=== PATIENT | male | born 1960 | race Caucasian/White ===

== ENCOUNTER 2024-01-11 12:09 | Outpatient (REF) | payer BC, SELFPAY ==
--- NOTE | ~2024-01-11 | XR_ITS ---
EXAMINATION: X-ray orbits. INDICATION: Metallic exposure, pre MRI evaluation for metallic foreign body. FINDINGS: Two Water's views and a lateral view x-rays of the orbits show intact bony borders. No radiopaque foreign bodies were found. XR/XR pre mri screening IMPRESSION: Normal orbits x-ray. No evidence of metallic foreign body.
--- NOTE | ~2024-01-11 | MR_ITS ---
EXAMINATION: MR BRAIN WITHOUT CONTRAST CLINICAL INFORMATION: Forgetful COMPARISON: None. TECHNIQUE: MRI of the brain was obtained using routine sequences without contrast. FINDINGS: No acute infarct. No acute intracranial hemorrhage or extra-axial fluid collection. Mild global cerebral volume loss. There may be slight right-sided hippocampal volume loss with ex vacuo dilatation of the right temporal horn. No parenchymal signal abnormality. No mass lesion, mass effect, or herniation pattern. Normal intracranial arterial and dural venous sinus flow voids. 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 The orbits are grossly unremarkable. Small retention cysts in the maxillary sinuses. 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 No mastoid effusion. Completely imaged cervical spondylosis, including hypertrophic advanced right C4-C5 facet arthrosis with T1 hypointense marrow signal that may reflect sclerosis versus marrow edema. MR/MR head/brain wo con IMPRESSION: Mild global cerebral volume loss. There may be slight right-sided hippocampal volume loss with ex vacuo dilatation of the right temporal horn. Consider 6 month follow-up volumetric assessment, as clinically warranted.
== END 2024-01-11 12:10 | disposition home or self-care (01) ==
LOC: HO.MRI 12:09
PROVIDERS: Absent Provider Internal Medicine; PCP Family Medicine; Visit Provider Psychiatry & Neurology Neurology
DX: G30.9 Alzheimer's disease, unspecified (principal)
CPT/HCPCS: 70551

== ENCOUNTER 2024-02-09 09:15 | Day surgery (SDC) | payer BC, OTHER, SELFPAY ==
--- NOTE | ~2024-02-09 | FL_ITS ---
Fluoroscopic lumbar puncture Indication: Concern for Alzheimer's dementia Risks and benefits and possible complications were discussed with the patient and the consent form was signed. Patient was placed prone on the fluoroscopy table. The back was prepped and draped in routine sterile fashion. Betadine was used as a skin antiseptic. Utilizing fluoroscopic guidance, the L3-4 interlaminar space was accessed with a 22 gague Slao spinal needle and clear CSF fluid obtained. Opening pressure was 14 cm H20. 10 cc of fluid was sent for analysis. The needle was removed without immediate complications. Total fluoroscopy time: 0.2 min FL/FL guided lumbar puncture LP Impression: Successful fluoroscopic lumbar puncture This procedure was performed by Cristo Gray PA-C and supervised by Dr. Wei.
[2024-02-09 09:53] VITALS: BMI 25.8
[2024-02-09 10:14] LABS: MANUAL DIFF FLAG NO
[2024-02-09 10:16] LABS: Basophils Absolute Auto 0.1 X10*3/uL (0.0-0.2); Basophils Percent Auto 2.2 % (0-2); Eosinophils Absolute Auto 0.3 X10*3/uL (0.0-0.4); Eosinophils Percent Auto 6.1 % (0-4); Hematocrit 46.4 % (42.0-52.0); Imm Gran Abs Auto 0.01 X10*3/uL (0.00-0.03); Imm Gran Pct Auto 0.2 % (0.0-0.4); Lymphocytes Absolute Auto 1.3 X10*3/uL (1.2-4.9); Lymphocytes Percent Auto 23.5 % (20-40); Mean Corpuscular HGB Conc 34.5 g/dl (31.0-36.0); Mean Corpuscular Hemoglobin 31.1 pg (27.0-33.0); Mean Corpuscular Volume 90.3 fL (80.0-98.0); Mean Platelet Volume 9.3 fL (9.4-12.4); Monocytes Absolute Auto 0.6 X10*3/uL (0.1-1.2); Monocytes Percent Auto 9.9 % (2-11); Neutrophils Absolute Auto 3.2 x10*3/uL (2.0-8.3); Neutrophils Percent Auto 58.1 % (45-73); Platelet Count 222 X10*3/uL (160-400); Red Blood Count 5.14 X10*6/uL (4.60-5.80); Red Cell Distribution Width 12.5 % (11.0-16.0); White Blood Count 5.5 X10*3/uL (4.8-10.8)
[2024-02-09 10:23] LABS: INTERNATIONAL NORM RATIO 0.9 (0.9-1.1); Prothrombin Time 11.3 SEC (11.1-13.3)
[2024-02-09 10:25] LABS: Partial Thromboplastin Time 27.1 SEC (26.0-36.8)
[2024-02-09 11:45] VITALS: BP 133/71; PULSE 53; RESP 18; TEMP 36.4; O2SAT 99
[2024-02-09 12:00] VITALS: BP 126/70; PULSE 52; RESP 18; O2SAT 100
[2024-02-09 12:15] VITALS: BP 124/75; PULSE 53; RESP 18; O2SAT 100
[2024-02-09 12:20] LABS: CSF Appearance Clear, Colorless; CSF Tube # 1
[2024-02-09 12:30] VITALS: BP 123/71; PULSE 59; RESP 18; O2SAT 99
[2024-02-09 12:40] VITALS: BP 117/74; PULSE 51; RESP 18; TEMP 36.6; O2SAT 100
[2024-02-09 12:47] LABS: Total Protein CSF 44.1 mg/dL (15-45)
[2024-02-09 13:35] LABS: Appearance CSF CLEAR; CSF Monos 20 %; Color CSF COLORLESS; Lymphocytes CSF 80 %
[2024-02-09 13:36] LABS: Red Blood Cell CSF 0 MM*3; White Blood Cell CSF 1 MM*3
[2024-02-09 13:37] LABS: CSF Tube # 4
[2024-02-10 12:11] LABS: Oligoclonal Serum Yes
[2024-02-12 22:18] LABS: Albumin 4.1 g/dL (3.6-5.1); Albumin, CSF 24.5 mg/dL (8.0-42.0); IgG 959 mg/dL (600-1540); IgG Synthesis Rate -2.4 mg/24 h (-9.9-3.3); IgG, CSF 2.8 mg/dL (0.8-7.7)
[2024-02-16 05:19] LABS: Oligoclonal Banding Absent (Absent)
== END 2024-02-09 12:49 | disposition home or self-care (01) ==
PROVIDERS: Physician Assistant Surgical; PCP Family Medicine; Visit Provider Psychiatry & Neurology Neurology
PROC: 009U3ZZ Drainage of Spinal Canal, Percutaneous Approach (ICD-10-PCS; CPT 62270; principal; 2024-02-09 11:00)
DX: G30.9 Alzheimer's disease, unspecified (principal)
CPT/HCPCS: 36415; 62328; 82042; 83520; 83916; 84157; 85025; 85610; 85730; 87015; 87070; 87205; 89051

== ENCOUNTER → 2024-02-09 11:10 | Outpatient (BNV) | payer BC, SELFPAY | PROVIDERS: PCP Family Medicine; Visit Provider Physician Assistant Surgical | DX: G30.9 Alzheimer's disease, unspecified (principal) | CPT/HCPCS: 62328 ==

== ENCOUNTER 2024-06-01 14:08 | Outpatient (REF) | payer BC, SELFPAY ==
--- NOTE | ~2024-06-01 | MR_ITS ---
EXAMINATION: MR BRAIN WITHOUT CONTRAST CLINICAL INFORMATION: Alzheimer's disease COMPARISON: MRI of brain on 01/11/2024 TECHNIQUE: MRI of the brain was obtained using routine sequences without contrast. FINDINGS: Ventricles, sulci and cisterns are slightly prominent. Coronal images show persistent asymmetric mild prominence of the right temporal horn with diffuse asymmetric thinning of the right hippocampus. There is mild thinning of bilateral parahippocampal gyri. No focal cerebral, brainstem or cerebellar lesions with abnormal signal can be seen. Diffusion weighted images show no abnormal regional decrease in diffusion. Normal flow voids of major intracerebral blood vessels are seen in the visualized portion. The pituitary gland contains a persistent T1 hypointense, T2 hyperintense lesion in anterior midline, measuring 0.43 cm in AP diameter, 0.29 cm in width, 0.28 cm in vertical height. Optic chiasm is not displaced. Cerebellar tonsils position is normal. There is unchanged midline nasopharyngeal roof Thornwaldt cyst measuring 0.5 cm in AP diameter, 0.4 cm in width, 1.1 cm in vertical height. Persistent tiny 0.5 cm polypoid mucosal lesion is seen at anterior wall of left maxillary sinus. MR/MR head/brain wo con IMPRESSION: 1. Mild atrophy. 2. No acute intracranial process is seen. 3. Unchanged midline nasopharyngeal roof Thornwaldt cyst. 4. 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 Electronically signed by: Mily Chambers MD 06/05/2024 07:51 AM EDT
== END 2024-06-01 14:09 | disposition home or self-care (01) ==
LOC: HO.MRI 14:08
PROVIDERS: PCP Family Medicine; Visit Provider Psychiatry & Neurology Neurology
DX: G30.9 Alzheimer's disease, unspecified (principal)
CPT/HCPCS: 70551

== ENCOUNTER 2024-06-30 19:09 | Outpatient (REF) | payer BC, SELFPAY ==
--- NOTE | ~2024-06-30 | MR_ITS ---
EXAMINATION: MR BRAIN WITHOUT CONTRAST CLINICAL INFORMATION: Alzheimer's disease, dementia COMPARISON: MRI of brain on 06/01/2024 TECHNIQUE: MRI of the brain was obtained using routine sequences without contrast. FINDINGS: Ventricles, sulci and cisterns are mildly prominent. Coronal images show persistent asymmetric mild prominence of the right temporal horn with diffuse asymmetric thinning of the right hippocampus. There is mild thinning of bilateral parahippocampal gyri. No focal cerebral, brainstem or cerebellar lesions with abnormal signal can be seen. Diffusion weighted images show no abnormal regional decrease in diffusion. Normal flow voids of major intracerebral blood vessels are seen in the visualized portion. The pituitary gland contains a persistent T1 hypointense, T2 hyperintense lesion in anterior midline, measuring 0.37 cm in AP diameter, 0.30 cm in width, 0.32 cm in vertical height (previously 0.43 x 0.29 x 0.28 cm). Optic chiasm is not displaced. Cerebellar tonsils position is normal. There is unchanged midline nasopharyngeal roof Thornwaldt cyst measuring 0.6 cm in AP diameter, 1.0 cm in width, 1.2 cm in vertical height (previously 0.5 x 0.7 x 1.1 cm). Persistent tiny 0.6 cm polypoid mucosal lesion (previously 0.5 cm) is seen at anterior wall of left maxillary sinus. MR/MR head/brain wo con IMPRESSION: 1. Unchanged mild asymmetric atrophy of the right hippocampus. 2. No acute intracranial hemorrhage or acute cerebral infarction is seen. 3. 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 Electronically signed by: Mily Chambers MD 07/17/2024 07:42 AM EST
== END 2024-06-30 19:10 | disposition home or self-care (01) ==
LOC: HO.MRI 19:09
PROVIDERS: PCP Family Medicine; Visit Provider Psychiatry & Neurology Neurology
DX: G30.9 Alzheimer's disease, unspecified (principal)
CPT/HCPCS: 70551

== ENCOUNTER 2024-08-08 15:48 | Outpatient (REF) | payer BC, SELFPAY ==
[2024-08-08 16:03] LABS: MANUAL DIFF FLAG NO
[2024-08-08 17:13] LABS: Basophils Absolute Auto 0.1 X10*3/uL (0.0-0.2); Basophils Percent Auto 2.5 % (0-2); Eosinophils Absolute Auto 0.3 X10*3/uL (0.0-0.4); Eosinophils Percent Auto 6.5 % (0-4); Hematocrit 42.9 % (42.0-52.0); Hemoglobin 14.9 g/dl (14.0-18.0); Imm Gran Abs Auto 0.02 X10*3/uL (0.00-0.03); Imm Gran Pct Auto 0.4 % (0.0-0.4); Lymphocytes Absolute Auto 1.5 X10*3/uL (1.2-4.9); Lymphocytes Percent Auto 32.4 % (20-40); Mean Corpuscular HGB Conc 34.7 g/dl (31.0-36.0); Mean Corpuscular Hemoglobin 31.1 pg (27.0-33.0); Mean Corpuscular Volume 89.6 fL (80.0-98.0); Mean Platelet Volume 9.9 fL (9.4-12.4); Monocytes Absolute Auto 0.5 X10*3/uL (0.1-1.2); Monocytes Percent Auto 11.1 % (2-11); Neutrophils Absolute Auto 2.2 x10*3/uL (2.0-8.3); Neutrophils Percent Auto 47.1 % (45-73); Platelet Count 257 X10*3/uL (160-400); Red Blood Count 4.79 X10*6/uL (4.60-5.80); Red Cell Distribution Width 12.7 % (11.0-16.0); White Blood Count 4.8 X10*3/uL (4.8-10.8)
[2024-08-08 17:33] LABS: Alanine Aminotransferase 18 U/L (0-40); Albumin Level 4.1 g/dL (3.5-5.0); Alkaline Phosphatase 51 U/L (39-117); Aspartate Amino Transferase 21 U/L (5-37); Bilirubin Direct 0.2 mg/dL (0.0-0.5); Bilirubin Total 0.3 mg/dL (0.0-1.0); Total Protein 6.8 g/dL (6.5-8.0)
[2024-08-14 03:33] LABS: JCV Antibody POSITIVE; JCV Index Value 1.23
== END 2024-08-08 15:49 | disposition home or self-care (01) ==
LOC: HO.LAB 15:48
PROVIDERS: PCP Family Medicine; Visit Provider Psychiatry & Neurology Neurology
DX: G30.9 Alzheimer's disease, unspecified (principal)
CPT/HCPCS: 36415; 80076; 85025; 86711

== ENCOUNTER 2024-09-28 07:22 | Outpatient (REF) | payer BC, SELFPAY | END 2024-09-28 07:23 | disposition home or self-care (01) | LOC: HO.MRI 07:22 | PROVIDERS: PCP Family Medicine; Visit Provider Psychiatry & Neurology Neurology | DX: G30.9 Alzheimer's disease, unspecified (principal) | CPT/HCPCS: 70551 ==

== ENCOUNTER → 2024-09-28 07:35 | Outpatient (BNV) | payer BC, SELFPAY | PROVIDERS: PCP Family Medicine; Visit Provider Radiology Diagnostic Radiology | DX: G30.9 Alzheimer's disease, unspecified (principal) | CPT/HCPCS: 70551 ==

== ENCOUNTER → 2025-02-08 07:30 | Outpatient (BNV) | payer BC, SELFPAY | PROVIDERS: PCP Family Medicine; Visit Provider Radiology Diagnostic Radiology | DX: E23.6 Other disorders of pituitary gland (principal) | CPT/HCPCS: 70551 ==

== ENCOUNTER 2025-02-08 07:32 | Outpatient (REF) | payer BC, SELFPAY ==
--- NOTE | ~2025-02-08 | MR_ITS ---
EXAMINATION: MR BRAIN WITHOUT CONTRAST CLINICAL INFORMATION: Alzheimer's dementia. Follow-up examination. COMPARISON: 09/28/2024, 06/30/2024, 06/01/2024. TECHNIQUE: MRI of the brain was obtained using routine sequences without contrast. Examination performed on a Siemens 1.5 Latricia high-field magnet. FINDINGS: There is no diffusion restriction. There is no intracranial hemorrhage, acute infarction, mass effect, or edema. Ventricles, sulci, and cisterns are mildly diffusely prominent, in keeping with mildly age advanced cerebral and cerebellar volume loss. No significant frontal, parietal, or temporal atrophy. Mild prominence of the right temporal horn again noted with mild diffuse asymmetric thickening of the right hippocampus and mild thinning of the bilateral perihippocampal gyri. These findings appear similar without change from the prior exams. No shift of midline. No abnormal hemosiderin deposition is identified. There are a few scattered tiny punctate foci of white matter T2 hyperintensity in the periventricular, subcortical, and hemispheric deep white matter. These foci are nonspecific but most likely relate to minimal changes of small vessel ischemia. No distribution or morphology specific to demyelinating disease. Midline structures appear normally formed. Tiny 0.4 cm cystic focus again noted in the anterior pituitary, consistent with a Rathke's cleft cyst previously characterized on 06/30/2024. Posterior fossa structures appear normal. Cerebellar tonsils are appropriately located. Major flow voids are preserved within the skull base. The globes and orbital contents demonstrate no abnormalities. Paranasal sinuses are essentially clear bilaterally. Nasal septum is midline without spur. There is a tiny amount of fluid in the right mastoid tip. The mastoids and tympanic cavities are otherwise normally aerated. Extracranial soft tissues demonstrate resolution of previously seen Thornwaldt cyst. No suspicious bone marrow changes are evident. Atlantoaxial joint demonstrate mild degenerative changes. MR/MR head/brain wo con IMPRESSION: 1. Unchanged mild asymmetric atrophy of the right hippocampus. There is otherwise stable mild diffuse prominence of the ventricles and sulci without asymmetric patterns of atrophy. 2. Minimal changes of small vessel ischemia. 3. 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 Electronically signed by: Romaine Hardy MD 02/08/2025 08:30 AM EDT
--- OUTSIDE RECORDS SUMMARY | 2025-02-08 07:34 | XMS_ITS | Clinical Summary ---
Author Organization [address] [facility] Address [address] [place] [address] Phone Care Team Providers Care Vamp Creaser Name Role Phone Richard Smith DO Primary Care Provider [phone] Encounters Date Type Department Care Team Description 01/26/2025 Lab Requisition [facility] - Main Lab [address] [facility] [address] Ade Dominguez PA Urinary tract infection, site not specified; Dysuria from Last 3 Months Social History Tobacco Use Types Packs/Day Years Used Date Smoking Tobacco: Never Assessed Sex and Gender Information Value Date Recorded Sex Assigned at Not on file Legal Sex Male 6:09 PM EDT Gender Identity Not on file Sexual Orientation Not on file Plan of Treatment Health Maintenance Due Date Last Done Comments DTaP,Tdap,and Td Vaccines (1 - Tdap) 1981 Pneumococcal Vaccine: 50+ Ye ars (1 of 1 - PCV) 2012 Zoster Vaccines (1 of 2) 2012 COVID-19 Vaccine ( - 2023-2 5 season) 2024 Cholesterol Screening (Lipid Panel) 01/27/2025 Colorectal Cancer Screening: Colonoscopy 01/27/2025 Depression Screening 01/27/2025 HIV Screening 01/27/2025 Hepatitis C Screening 01/27/2025 Social Influencers of Health Screening 01/27/2025 Influenza Vaccine (Season Ended) 2025 RSV Immunization Adult Patie nts (1 - 1-dose 75+ series) 2037 HIB Vaccines Aged Out No longer eligi ble based on patient's age to complete this topic HPV Vaccines Aged Out No longer eligi ble based on patient's age to complete this topic Hepatitis A Vaccines Aged Out No long er eligible based on patient's age to complete this topic Hepatitis B Vaccines Aged Out No long er eligible based on patient's age to complete this topic IPV Vaccines Aged Out No longer eligi ble based on patient's age to complete this topic MMR Vaccines Aged Out No longer eligi ble based on patient's age to complete this topic Meningococcal ACWY Vaccine Aged Out N o longer eligible based on patient's age to complete this topic Meningococcal B Vaccine Aged Out No l onger eligible based on patient's age to complete this topic Pneumococcal Vaccine: Pediat rics (0 to 5 Years) and At-Risk Patients (6 to 64 Years) Aged Out No longer eligible b ased on patient's age to complete this topic RSV Immunization Patients Un genesis 20 months Aged Out No longer eligible b ased on patient's age to complete this topic Varicella Vaccines Aged Out No longer eligible based on patient's age to complete this topic Procedures Procedure Name Priority Date/Time Associated Diagnosis Comments CULTURE URINE Routine 01/26/2025 2:45 PM EDT Urinary tract infection, site not specified Dysuria from Last 3 Months Results * Culture urine (01/26/2025 2:45 PM EDT) Culture, Urine <10,000 cfu/ml, insignificant count, no further workup. 01/27/2025 1:25 PM EDT [facility] Urine Urine specimen obtained by clean catch procedure / Unknown 01/26/2025 2:45 PM EDT 01/26/2025 6:18 PM EDT us Ade [facility] MICROBIOLOGY - GENERAL ORD ERABLES Final Result [facility] [address] [place] [address], [place] [phone] from Last 3 Months Insurance [facility] Care Teams Vamp Creaser Relationship Specialty Start Date End Date Richard Smith DO [address] [place] [id number] PCP - General Family Medicine 01/26/25
== END 2025-02-08 07:33 | disposition home or self-care (01) ==
LOC: HO.MRI 07:32
PROVIDERS: PCP Family Medicine; Visit Provider Psychiatry & Neurology Neurology
DX: G30.9 Alzheimer's disease, unspecified (principal)
CPT/HCPCS: 70551

== ENCOUNTER 2025-05-21 15:05 | Outpatient (AMB) | payer BC, SELFPAY ==
--- NOTE | 2025-05-21 15:17 | MHC.OFFVIS ---
Intake Visit Reasons: 3 month AD Allergies No Known Allergies Allergy (Verified 02/09/24 09:55) HPI Comments Details: 64 years old man, and insurance sales specialist, with strong family history of dementia, both father and mother suffering from and dying from dementia, was seen for complaints of forgetfulness in December 2023. His brain MRI revealed hippcampal atrophy and CSF analysis revealed pattern suggestive of Alzheimer disease. 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 He was started no Leqembi in February of 2024. After 9-10 months of treatment with Leqembi, amyloid brain PET was done (which initially was not done due to insurance coverage issues), which was a negative study for amyloid. Based upon this finding, Leqembi was stopped. He is presenting for a routine follow-up concerning his Alzheimer's Disease management. He has a genetic predisposition with a familial history, both parents suffering from the condition. Post-diagnosis, the patient was initiated on specific treatment, which showed initial efficacy as supported by early neuroimaging. Initial pharmacological intervention began around March of the past year, continuing until December, with subsequent imaging indicating no notable progression of disease. Further evaluations such as repeat CT or Positron Emission Tomography (PET) scans were deliberated for future monitoring, factoring in the slow amyloid buildup associated with his condition. Adjustments in medication timing were also sought to address secondary issues like sleep disturbances, suggesting compliance with the therapeutic regiment and adaptability to manage side effects. Review of Systems Const Details: - Neurological: Reports stability and improvement in Alzheimer's symptoms with medication; denies new onset symptoms. - Psychological: Reports wacky dreams; associated with specific medication regimen. - No additional systems or symptoms were reported. Assessment & Plan Assessment & Plan (1) Alzheimer dementia: Comment: MRI brain WO at [facility] in January 2025: No sig change Brain PET at [place] in Dec 2024: Negative for amyloid ApoE study at [facility] in 2023: E4 homozygous MRI brain WO at [facility] in Jun 2024: Mild hippocampal atrophy, no change LP at [facility] in January 2024: OP 14cm, WBCs 1, RBCs 0, Pro 44, OCBs neg, AIT reduced: AD. MRI brain WO at [facility] in Dec 2023: Mild R hippocampal atrophy. Code(s): G30.9 - Alzheimer's disease, unspecified; F02.80 - Dementia in other diseases classified elsewhere, unspecified severity, without behavioral disturbance, psychotic disturbance, mood disturbance, and anxiety Category: Medical Qualifiers: Alzheimer's disease onset: early onset Dementia severity: mild Dementia behavioral or psychological symptom: without behavioral, psychotic, or mood disturbance or anxiety Qualified Code(s): G30.0 - Alzheimer's disease with early onset; F02.A0 - Dementia in other diseases classified elsewhere, mild, without behavioral disturbance, psychotic disturbance, mood disturbance, and anxiety Plan Impression: Mild early onset Alzheimer dementia, s/p about a year of treatment with Leqembi, with a negative PET afterwards Rec: a: Donepezil 10mg a day in am b: Sertraline 25mg in am Coding Level of Care Code Est Pt Level 5 (41036) Diagnoses Mild early onset Alzheimer's dementia without behavioral disturbance, psychotic disturbance, mood disturbance, or anxiety G30.0; F02.A0 Alzheimer's disease onset: early onset Dementia severity: mild Dementia behavioral or psychological symptom: without behavioral, psychotic, or mood disturbance or anxiety
--- OUTSIDE RECORDS SUMMARY | 2025-05-21 18:18 | XMS_ITS | Clinical Summary ---
Author Organization [facility] Address [address] [place] [phone] Phone Care Team Providers Care Lookback Coordinator Name Role Phone Richard Smith DO Primary Care Provider [phone] Richard Smith DO Unavailable Richard Smith DO Unavailable Allergies No known active allergies Medications omega-3 fatty acids-fish oil 340-1,000 mg Cap as directed A ctive glucosamine HCl 750 mg Tab daily. Active multivitamin-min erals-lutein (MULTIVITAMIN 50 PLUS) Tab Take 1 tablet by mouth daily. Active omeprazole (PRILOSEC) 20 mg TbEC Take 20 mg by mouth daily as needed (GERD). Active lecanemab-irmb (LEQEMBI) 100 mg/mL Soln intravenous solution Inject 8 mL (800 mg total) into the vein every 14 (fourteen) days. 4 Active Additional Information Patient not taking.Reported on 02/13/2025 tamsulosin (FLOMAX) 0.4 mg Cap Take 1 capsule (0.4 mg total) by mouth daily. 15 capsule 5 Active Additional Information Patient not taking.Reported on 02/13/2025 Active Problems Problem Noted Date Diagnosed Date H/O adenomatous polyp of colon 02/23/2025 Preop examination 12/21/2024 Assessment & Plan (12/21/2024 9:42 AM EDT): Pt to have labs drawn with Dr Garcia. EKG not indicated as pt without Cardiovascular disease. Pt to confirm with Dr Sun that there would be no complications with his upcoming surgery related to his leqembi. Pt to hold his fish oil 2 weeks prior to surgery. Pt cleared to proceed with surgery. Alzheimer disease 05/22/2024 Assessment & Plan (12/21/2024 9:40 AM EDT): Mild symptoms at this point. Strong family hx with both parents with Alzheimer's.Pt following with Neurologist Dr Sun at [facility] and started treatment with Lequembi March 2024. Pt has infusions every other week and is tolerating the treatments well to this point. Treatment course to last 18 months. Pt to confirm with Dr Sun that there would be no complications with his upcoming surgery related to his leqembi. Assessment & Plan (10/03/2024 3:20 PM EST): Mild symptoms at this point. Strong family hx with both parents with Alzheimer's.Pt following with Neurologist Dr Sun at [facility] and started treatment with Lequembi March 2024. Pt has infusions every other week and is tolerating the treatments well to this point. Treatment course to last 18 months. Assessment & Plan (05/22/2024 1:55 PM EDT): Mild symptoms at this point. Strong family hx with both parents with Alzheimer's.Pt following with Neurologist Dr Sun at [facility] and recently started treatment with Lequembi. Pt has infusions every other week and is tolerating the treatments well to this point. Treatment course to last 18 months. Benign prostatic hyperplasia with nocturia 05/22 Assessment & Plan (10/03/2024 3:43 PM EST): Pt with mild elevation in PSA. Has found tamsulosin helpful. He wishes to have a referral to Urology. Assessment & Plan (05/22/2024 1:56 PM EDT): Pt with normal PSA. Will do a trial with tamsulosin and consider referral to Urology prn. Prepatellar bursitis of right knee 03/08/2024 Assessment & Plan (04/05/2024 4:35 PM EDT): Recurrence of pain and swelling but swelling much improved from February. Acewrap applied, take naproxen for next several days and f/u with ortho. Memory loss 04/30/2023 Assessment & Plan (04/30/2023 1:33 PM EDT): Pt with significant family hx of alzheimer's and is quite concerned that he will travel a similar path as his parents. We'll check labs and refer to Neurology for further eval. Pt doing well with diet and exercise regimen. Family history of Alzheimer's disease 04/30/2023 Skin tag 04/30/2023 Assessment & Plan (04/30/2023 1:43 PM EDT): Treated with cryotherapy x 40 seconds. RTC prn. Leg cramping 04/30/2023 Assessment & Plan (04/30/2023 1:45 PM EDT): Will check ferritin. ? RLS ? Dehydration. Pt to try and do better with hydration and electrolyte repletion. Try hot bath and massage at the end of the day. Could consider trial with gabapentin or requip prn although pt not interested in medication at this time. Pain in joint of right shoulder 06/08/2022 Onychomycosis 06/08/2022 Assessment & Plan (06/08/2022 4:00 PM EDT): Has failed topical treatments and wishes to treat with lamisil. Rx sent. We'll monitor labs. Pt advised of potential side effects. Cervicalgia 10/04/2020 Assessment & Plan (10/03/2024 3:24 PM EST): Pt manages with massage and chiropractic treatment. Follows HEP doing well. We'll consider imaging, PT and physiatry eval prn. Assessment & Plan (12/10/2022 3:41 PM EDT): Pt manages with massage and chiropractic treatment. Follows HEP doing well. We'll consider imaging, PT and physiatry eval prn. Assessment & Plan (06/08/2022 4:01 PM EDT): Pt referred to PT and will use heat and ibuprofen for discomfort. Consider muscle relaxant and physiatry eval prn. Assessment & Plan (10/04/2020 10:01 AM EST): Doing well with massage therapy Dupuytren's contracture of right hand 09/29/2018 Assessment & Plan (12/10/2022 3:35 PM EDT): Follows with Dr Velarde did well with surgery. Assessment & Plan (12/02/2021 3:24 PM EDT): Follows with Dr Velarde did well with surgery. Assessment & Plan (10/04/2020 9:59 AM EST): Follows with Dr Velarde did well with injections. RTC prn. Assessment & Plan (10/03/2019 9:18 AM EST): Follows with Dr Velarde did well with injections. RTC prn. Assessment & Plan (09/29/2018 5:20 PM EST): Referral to Dr Velarde placed. Dyslipidemia 09/17/2017 Assessment & Plan (10/03/2024 3:23 PM EST): Pt with borderline values. Hoping to avoid statin. Pt counseled on diet and exercise regimen. We'll continue to monitor. Has been able to manage off meds to this point. consider starting statin prn. The 10-year ASCVD risk score (Eldon FRANCO, et al., 2019) is: 6.9% Values used to calculate the score: Age: 64 years Sex: Male Is Non- : No Diabetic: No Tobacco smoker: No Systolic Blood Pressure: 104 mmHg Is BP treated: No HDL Cholesterol: 81 mg/dL Total Cholesterol: 282 mg/dL Assessment & Plan (05/22/2024 1:56 PM EDT): Pt with borderline values. Hoping to avoid statin. Pt counseled on diet and exercise regimen. We'll continue to monitor. Has been able to manage off meds to this point. consider starting statin prn. Assessment & Plan (12/10/2022 4:59 PM EDT): Pt with borderline values. Hoping to avoid statin. Pt counseled on diet and exercise regimen. We'll continue to monitor. Has been able to manage off meds to this point. consider starting statin prn. Assessment & Plan (06/08/2022 3:03 PM EDT): 10 year cardiac risk at 6.7% Meds not warranted. Pt counseled on diet and exercise regimen. We'll continue to monitor. Has been able to manage off meds to this point. We'll check labs and consider starting statin prn. Assessment & Plan (12/02/2021 3:25 PM EDT): Pt counseled on diet and exercise regimen. We'll continue to monitor. Has been able to manage off meds to this point. We'll check labs and consider starting statin prn. Assessment & Plan (10/04/2020 10:00 AM EST): Pt counseled on diet and exercise regimen. We'll continue to monitor. Has been able to manage off meds to this point. We'll check labs and consider starting statin prn. Assessment & Plan (10/03/2019 9:21 AM EST): Pt counseled on diet and exercise regimen. We'll continue to monitor. Pt dropped 8 lbs this year. Assessment & Plan (09/29/2018 9:31 AM EST): Pt counseled on diet and exercise regimen. Assessment & Plan (09/17/2017 7:02 PM EST): Pt counseled on diet and exercise regimen. We'll check labs and make further recommendations prn. Erectile dysfunction 09/17/2017 Assessment & Plan (10/04/2020 9:59 AM EST): Pt doing well with Viagra. Assessment & Plan (10/03/2019 12:14 PM EST): Pt finds med helpful. Pt noted nasal fullness on sildenafil. We'll rx Viagra. Assessment & Plan (09/29/2018 9:29 AM EST): Well managed with viagra. Assessment & Plan (09/17/2017 7:02 PM EST): Well managed with viagra. GERD (gastroesophageal reflux disease) 8 Assessment & Plan (10/03/2024 3:23 PM EST): Pt advised to avoid late night meals, spicy foods, foods high in fat, caffeine, tobacco and alcohol. Pt advised to elevate the head of the bed and reduce weight. Uses omeprazole on occasion. Assessment & Plan (12/10/2022 3:34 PM EDT): Pt advised to avoid late night meals, spicy foods, foods high in fat, caffeine, tobacco and alcohol. Pt advised to elevate the head of the bed and reduce weight. Uses omeprazole on occasion. Assessment & Plan (12/02/2021 3:26 PM EDT): Pt advised to avoid late night meals, spicy foods, foods high in fat, caffeine, tobacco and alcohol. Pt advised to elevate the head of the bed and reduce weight. Uses omeprazole on occasion. Assessment & Plan (10/04/2020 9:59 AM EST): Pt advised to avoid late night meals, spicy foods, foods high in fat, caffeine, tobacco and alcohol. Pt advised to elevate the head of the bed and reduce weight. Not currently requiring medication. Assessment & Plan (10/03/2019 9:24 AM EST): Pt advised to avoid late night meals, spicy foods, foods high in fat, caffeine, tobacco and alcohol. Pt advised to elevate the head of the bed and reduce weight. Not currently requiring medication. Assessment & Plan (09/29/2018 9:33 AM EST): Pt advised to avoid late night meals, spicy foods, foods high in fat, caffeine, tobacco and alcohol. Pt advised to elevate the head of the bed and reduce weight. Not currently requiring medication. Annual physical exam 09/17/2017 Assessment & Plan (10/03/2024 3:29 PM EST): Colonoscopy due last done 09/27 with 10 year f/u advised. Pt UTD with fasting labs.Pt to have flu shot, covid and td today. He is UTD with shingrix. We will continue to check PSA as pt with family hx. Pt counseled on diet and exercise regimen. Assessment & Plan (12/10/2022 3:47 PM EDT): Colonoscopy UTD 09/27 with 10 year f/u advised. Pt UTD with fasting labs. UTD with covid with boosters and td . He will get shingrix # 1 today and RTC 2 months for shot # 2. Pt would like PSA drawn due to family hx. Pt counseled on diet and exercise regimen. Assessment & Plan (12/02/2021 3:33 PM EDT): Colonoscopy UTD 09/27 with 10 year f/u advised. Pt due for fasting labs UTD with td and flu shot. Pt would like PSA drawn due to family hx. Pt counseled on diet and exercise regimen. Assessment & Plan (10/04/2020 9:17 AM EST): Colonoscopy UTD 09/27 with 10 year f/u advised. Pt due for fasting labs UTD with td and flu shot. Pt would like PSA drawn. Pt counseled on diet and exercise regimen. Assessment & Plan (10/03/2019 12:14 PM EST): Colonoscopy UTD 09/27 with 10 year f/u advised. Pt due for fasting labs UTD with td and declines flu shot. Pt would like PSA drawn. Pt counseled on diet and exercise regimen. Assessment & Plan (09/29/2018 9:45 AM EST): Colonoscopy UTD 09/27 with 10 year f/u advised. Pt UTD with fasting labs UTD with td and declines flu shot. Pt would like PSA drawn. Pt counseled on diet and exercise regimen. Assessment & Plan (09/17/2017 4:20 PM EST): Colonoscopy UTD 09/27 with 10 year f/u advised. Pt to have fasting labs drawn. UTD with td and declines flu shot. Pt would like PSA drawn. Pt counseled on diet and exercise regimen. Left inguinal hernia 09/17/2017 Assessment & Plan (10/03/2024 3:23 PM EST): Stable. Not requiring surgical intervention at this time. Assessment & Plan (12/10/2022 3:36 PM EDT): Stable. Not requiring surgical intervention at this time. Assessment & Plan (12/02/2021 3:27 PM EDT): Stable. Not requiring surgical intervention at this time. Assessment & Plan (10/03/2019 9:24 AM EST): Stable. Not requiring surgical intervention at this time. Assessment & Plan (09/29/2018 9:31 AM EST): Stable. Not requiring surgical intervention at this time. Assessment & Plan (09/17/2017 7:03 PM EST): Stable. Not requiring surgical intervention at this time. Encounter for preoperative s creening laboratory testing for COVID-19 virus Encounters Date Type Department Care Team Description 02/21/2025 Orders Only [address] [place] [address] Provider, MD Ricky from Last 3 Months Immunizations Immunization Administration Dates Next Due COVID-19 (Pre) Pfizer Vaccine, Bivalent 12+ 06/13/2022 COVID-19 (Pre) Pfizer Vaccine, mRNA, PF 07/30/2021,01/12/2021,12/22/2020 COVID-19 Pfizer Comirnaty Vaccine 12+ 10/03/2024 INFLUENZA, SPLIT VIRUS, TRIVALENT PF 10/03/2024 Influenza Quadrivalent Preservative Free IM 07/14 Influenza trivalent preserva tive free intradermal 07/29/2015,07/27/2014 Influenza, Unspecified Formulation 07/14/2020 Td (adult),2 Lf Tetanus Toxo id, PF, Adsorbed 10/03/2024 Tdap 07/27/2014 Zoster recombinant 04/30/2023,12/10/2022 Family History Medical History Relation Comments Dementia Father Prostate cancer Father Dementia Mother Heart attack Paternal Grandfather Relation Status Comments Father Mother Paternal Grandfather Social History Tobacco Use Types Packs/Day Years Used Date Smoking Tobacco: Never Smokeless Tobacco: Never Tobacco Cessation:Counseling Given: Not Answered Alcohol Use Standard Drinks/Week Comments Not Currently 3 (1 standard drink = 0.6 oz pur e alcohol) Child or Family Care Answer Date Record ed Do you have problems with on e of the following making it difficult for you to work, study, or receive health care? No 09/28/2024 Education Answer Date Recorded Are you interested in help w ith more adult education (for example, completing high school, GED, job training, learning the [place] language, technical skills, or developing parenting skills)? No 09/28/2024 Are you concerned about learning? Not on file 09/28/2024 No 09/28/2024 Yes 09/28/2024 Food Answer Date Recorded Within the past 6 months we worried whether our food would run out before we got money to buy more. Never True 09/28/2024 Within the past 6 months the food we bought just didn't last and we didn't have enough money to get more. Never True Residential Stability Answer Date Recor ded What is your housing situation today? I have eda sing 09/28/2024 How many times have you move d in the past 12 months? Zero (I did not move) 09/28/2024 Paying for Meds Answer Date Recorded Do you have trouble paying for medicines? No 09/28/2024 Paying Utility Bills Answer Date Record ed Do you have trouble paying your heating or elect ricity bill? No 09/28/2024 Transportation Answer Date Recorded Has the lack of transportati on kept you from medical appointments or from getting medications? No 09/28/2024 Unemployment Answer Date Recorded Are you currently unemployed or working on a part-time or temporary basis, and looking for work? No 12/09/2022 Digital Access Answer Date Recorded No 09/28/2024 Yes 09/28/2024 Do you have reliable internet access at home? Ye s 09/28/2024 Do you have a device (e.g., phone, tablet, computer) with a working camera? Yes 09/28/2024 Intimate Partner Violence Answer Date R ecorded Denied Basic Needs Not on file 02/13/2025 In the past 12 months have y ou been in a relationship with a person who hurts, threatens, or tries to control you? No 02/13/2025 Worried food would run out Not on file 02/13 In the past 12 months have y ou been in a relationship with a person who hurts, threatens, or tries to control you? 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 Not on file Not on fi le Last Filed Vital Signs Vital Sign Reading Time Taken Comments Blood Pressure 110/79 02/16/2025 7:57 AM EDT Pulse 58 02/16/2025 7:57 AM EDT Temperature 36 C (96.8 F) 02/16/2025 7:48 AM EDT Respiratory Rate 17 02/16/2025 7:57 AM EDT Oxygen Saturation 100% 02/16/2025 7:57 AM EDT Inhaled Oxygen Concentration - - Weight 81.6 kg (180 lb) 02/13/2025 1:59 PM EDT Height 180.3 cm (5' 11 ) 02/13/2025 1:59 PM EDT Body Mass Index 25.1 02/13/2025 1:59 PM EDT Plan of Treatment Upcoming Encounters Date Type Department Care Team (Late st Contact Info) Description 10/04/2025 3:00 PM EST Office Visit [facility] [address] [place] [address] Richard Smith DO [address] [place] [address] [email or web address] Maintenance Due Date Last Done Comments COLOGUARD 2007 FIT TEST 2007 FOBT 2007 SIGMOIDOSCOPY 2007 VIRTUAL COLONOSCOPY 2007 PNEUMOCOCCAL VACCINES (50+ years) (1 of 1 - PCV) 2012 INFLUENZA VACCINE (#1) 2025 , 07/14/2020, 07/30/2016, Additional history exists DEPRESSION SCREENING 09/28/2025 09/28/2024 SCREENING FOR DIABETES 09/27/2027 09/27/2024 LIPID PANEL 09/27/2029 09/27/2024, 0809/2022, 05/03/2023, Additional history exists Adult Td,Tdap Booster 10/03/2034 10/03/2024, 014 COLONOSCOPY 02/16/2035 02/16/2025, 09/14/2014 COLORECTAL CANCER SCREENING 02/16/2035 RSV VACCINE (1 - 1-dose 75+ series) 2037 HEPATITIS C SCREENING Completed 10/07/2020, 021 HIV ONE-TIME SCREENING (18-65 YEARS) Completed 10/07/2020 ZOSTER VACCINES Completed 04/30/2023, 12/10/2022 COVID-19 VACCINE Completed 10/03/2024, 09/2021, 07/30/2021, Additional history exists SMOKING STATUS SCREENING (Once After 26 Yrs) Completed 02/16/2025 HEPATITIS A VACCINES Aged Out No long er eligible based on patient's age to complete this topic HIB VACCINES Aged Out No longer eligi ble based on patient's age to complete this topic MENINGOCOCCAL VACCINES (ACWY) Aged Out No longer eligible based on patient's age to complete this topic MENINGOCOCCAL VACCINES (B) Aged Out N o longer eligible based on patient's age to complete this topic Medical Devices Not on file Procedures Procedure Name Priority Date/Time Associated Diagnosis Comments ENDOSCOPY, COLON 02/16/2025 7:27 AM EDT LIPID PANEL Routine 09/27/2024 8:22 AM EST Dyslipidemia HEPATITIS C ANTIBODY, QUALITATIVE Routine 10/07/2020 9:49 AM EST Annual physical exam from Last 3 Months or Most Recently Relevant to Health Maintenance Results * ENDOSCOPY, COLON (02/16/2025 7:27 AM EDT) Narrative Transcriptions Quinn Brennan MD - 02/16/2025 7:27 AM EDT [facility] Patient Name: Ryan Merinoon Attending MD:: QUINN BRENNAN MD, Procedure Date: 02/16/2025 7:27 AM Date of : 1960 Age: 64 Admit Type: Outpatient Gender: Male Room: [place] [address] Referring MD: RICHARD SMITH MD Exam Type: Colonoscopy Indications: Screening for colorectal malignant neoplasm, Last colonoscopy 10 years ago Medications: Monitored Anesthesia Care Procedure: Informed consent was obtained from the patientafter discussion of the indications, limitations, alternatives, benefits, and risks of the procedure. Risks specifically discussed include but are not limited to medication reactions, missed lesions, bleeding, perforation, or the need for emergent surgery. Throughout the procedure, the patient's blood pressure, pulse, end-tidal CO2, and oxygensaturations were monitored continuously. The Olympus adult variable colonoscope [id number] #1 was introduced through the anus and advanced to the cecum, identified by the appendiceal orifice. The colonoscopy was performed without difficulty. The patient tolerated the procedure well. The qualityof the bowel preparation was good. Anatomicallandmarks were photographed. Complications: No immediate complications. Estimated blood loss:None. Findings: The perianal and digital rectal examinations were normal. A 5 mm polyp was found in the sigmoid colon. Thepolyp was sessile. The polyp was removed with a coldsnare. Resection and retrieval were complete. The rectum, recto-sigmoid colon, descending colon, splenic flexure, transverse colon, hepatic flexure, ascending colon, cecum, appendiceal orifice,ileocecal valve, rectum (on retroflexion) and ascending colon (on retroflexion) appeared normal. Impression: - One 5 mm polyp in the sigmoid colon, removed witha cold snare. Resected and retrieved. - The rectum (on retroflexion), ascending colon (on retroflexion), rectum, descending colon, splenic flexure, transverse colon, hepatic flexure,ascending colon, cecum, recto-sigmoid colon, ileocecal valveand appendiceal orifice are normal. Recommendation: - Discharge patient to home. - Resume previous diet. - Continue present medications. - Await pathology results. - Repeat colonoscopy in 7 years for surveillance. - I will send you pathology results by letter. If you do not getresults in 3 weeks telephone my office. QUINN BRENNAN MD 02/16/2025 7:48:24 AM This report has been signed electronically. Number of Addenda: 0 Note Initiated On: 02/16/2025 7:27 AM Procedure Code(s): --- Professional --- 30195, Colonoscopy, flexible; with removal of tumor(s), polyp(s), or other lesion(s) by snare technique --- Technical --- 85252, Colonoscopy, flexible; with removal of tumor(s), polyp(s), or other lesion(s) by snare technique Diagnosis Code(s): --- Professional --- Z12.11, Encounter for screening for malignantneoplasm of colon D12.5, Benign neoplasm of sigmoid colon --- Technical --- Z12.11, Encounter for screening for malignantneoplasm of colon D12.5, Benign neoplasm of sigmoid colon CPT copyright 2021 [employer]. All rights reserved. The codes documented in this report are preliminary and upon millinery department manager reviewmay be revised to meet current compliance requirements. Procedure Date: 02/16/2025 7:27:[address] [place] [id number] us Richard Smith DO GI PROCEDURE ORDERABLES Final Re sult * (ABNORMAL) Lipid panel (09/27/2024 8:22 AM EST) HDL 81 mg/dL [facility] Comment: Interpretation <40 mg/dL: Low HDL cholesterol (major risk factor for CHD) Greater than or equal to 60 mg/dL: High HDL cholesterol ( negative risk factor for CHD) HDL - cholesterol is affected by a number of factors, e.g. smoking, excerise, hormones, sex and age. CHOLESTEROL 282(H) 0 - 240 mg/dL [facility] TRIGLYCERIDES 70 30 - 160 mg/dL [facility] LDL 187(H) 50 - 129 mg/dL [facility] Comment: LDL levels in terms of risk for coronary heart disease: <100 mg/dL: Optimal 100-129 mg/dL: Near or above optimal 130-159 mg/dL: Borderline high 160-189 mg/dL: High >190 mg/dL: Very High CARDIAC RISK RATIO 3.5 3.4 - 5.0 C [facility] Blood 09/27/2024 8:22 AM EST 09/27/2024 8:25 AM EST us Richard Smith DO LAB BLOOD ORDERABLES Final Resul t [address] [address] * Hepatitis C antibody, qualitative (10/07/2020 9:49 AM EST) HCV NON-REACTIV E NON-REACTI VE [facility] Blood 10/07/2020 9:49 AM EST 10/07/2020 9:53 AM EST us Richard Smith DO LAB BLOOD ORDERABLES Final Resul t Performing Organization Address City/State/[facility] Co de Phone Number [address] [address] from Last 3 Months or Most Recently Relevant to Health Maintenance Insurance PPO PPO BLUE [place] OUT OF STATE PPO BLUE [place] OUT OF STATE PPO [place] OUT OF STATE PPO [place] OUT OF STATE PPO OUT OF STATE [place] [address] [address] OUT OF STATE PPO OUT OF STATE PPO Care Teams Lookback Coordinator Relationship Specialty Start Date End Date Richard Smith DO [address] [place] [address] PCP - General 07/01/17 Richard Smith DO [address] [place] [address] Historical LMR Provider 07/03/17 Richard Smith DO [address] [place] [address] Insurance Assigned Provider 12/18/23 Additional Source Comments The information contained in this document represents components of the legal health record. It is not the complete legal health record.[facility]
--- OUTSIDE RECORDS SUMMARY | 2025-05-21 18:18 | XMS_ITS | Encounter Summary ---
Author Organization [facility] Address [address] [place] [address] Phone Care Team Providers Care Clay Dry Press Helper Name Role Phone Ricahrd Smith DO Primary Care Provider [phone] Richard Smith DO Unavailable Matthias Chicas MD Unavailable [phone] Richard Smith DO Unavailable Richard Smith DO Unavailable Encounter Details Date Type Department Care Team (Late st Contact Info) Description 09/23/2018 Transcribe Orders [facility] [address] [place] [address] Richard Smith DO 29 [place] [address] Social History Tobacco Use Types Packs/Day Years Used Date Smoking Tobacco: Never Smokeless Tobacco: Never Alcohol Use Standard Drinks/Week Comments Yes 0 (1 standard drink = 0.6 oz pur e alcohol) socially, beers Sex and Gender Information Value Date Recorded Sex Assigned at Not on file Legal Sex Male 9:45 PM EDT Gender Identity Not on file Sexual Orientation Not on file 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 Not on file Not on fi le documented as of this encounter Plan of Treatment Upcoming Encounters Date Type Department Care Team (Late st Contact Info) Description 10/04/2025 3:00 PM EST Office Visit [facility] 29 [place] [address] Richard Smith DO 29 [place] [address] documented as of this encounter Visit Diagnoses Not on filedocumented in this encounter Additional Health Concerns Infection Onset Date Last Indicated Resolved Time CoV-Risk 10/28/2020 10/29/2020 11/07/2020 1:24 AM EST Assessment Noted Time PHQ-2 Depression Total Score: 0 09/17/19 3:39 PM EST documented as of this encounter Care Teams Clay Dry Press Helper Relationship Specialty Start Date End Date Richard Smith DO [address] [place] [address] PCP - General 07/01/17 Richard Smith DO [address] [place] [address] Historical LMR Provider 07/03/17 Matthias Chicas MD [address] [place], [place] [phone] Historical LMR Provider 07/03/17 2 Richard Smith DO [address] [place] [address] Insurance Assigned Provider 02/16/2105/24 Richard Smith DO [address] [place] [address] [email or web address] Insurance Assigned Provider 12/18/23 documented as of this encounter Additional Source Comments The information contained in this document represents components of the legal health record. It is not the complete legal health record.[facility]
--- OUTSIDE RECORDS SUMMARY | 2025-05-21 18:18 | XMS_ITS | Encounter Summary ---
Author Organization [facility] Address [address] [facility] [address] [place] [address] Phone Care Team Providers Care Public Relations Manager Name Role Phone Richard Smith DO Primary Care Provider [phone] Ricahrd Smith DO Unavailable Richard Smith DO Unavailable Encounter Details Date Type Department Care Team (Late st Contact Info) Description 02/16/2025 Procedure Pass [facility] Endoscopy Admitting Dept Virtual Department 30 [place] [address] Social History Tobacco Use Types Packs/Day Years Used Date Smoking Tobacco: Never Smokeless Tobacco: Never Alcohol Use Standard Drinks/Week Comments Not Currently [...] high school, GED, job training, learning the Luxembourgish language, technical skills, or developing parenting skills)? [...] your housing situation today? 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 Not on file Not on fi le documented as of this encounter Plan of Treatment Upcoming Encounters Date Type Department Care Team (Late st Contact Info) Description 10/04/2025 3:00 PM EST Office Visit [facility] [address] [place] [address] Richard Smith, DO [address] [place] [address] [email or web address] documented as of this encounter Visit Diagnoses Not on filedocumented in this encounter Additional Health Concerns Assessment Noted Time PHQ-2 Depression Total Score: 0 09/28/19 25 7:27 AM EST documented as of this encounter Care Teams Public Relations Manager Relationship Specialty Start Date End Date Richard Smith DO 29 [place] [address] [email or web address] PCP - General 07/01/17 Richard Smith DO 29 [place] [address] [email or web address] Historical LMR Provider 07/03/17 Richard Smith DO 29 [place] [address] Insurance Assigned Provider 12/18/23 documented as of this encounter Additional Source Comments The information contained in this document represents components of the legal health record. It is not the complete legal health record.[facility]
--- OUTSIDE RECORDS SUMMARY | 2025-05-21 18:18 | XMS_ITS | Encounter Summary ---
Author Organization [facility] Address [address] [place] [address] Phone Care Team Providers Care Chief Service Dispatcher Name Role Phone Richard Smith DO Primary Care Provider [phone] Richard Smith DO Unavailable Richard Smith DO Unavailable Encounter Details Date Type Department Care Team (Late st Contact Info) Description 03/27/2024 Transcribe Orders [facility] 29 [place] [address] Richard Smith DO 29 [facility] [place] [address] [email or web address] Social History Tobacco Use Types Packs/Day Years Used Date Smoking Tobacco: Never Smokeless Tobacco: Never Alcohol Use Standard Drinks/Week Comments Yes 3 (1 standard drink = 0.6 oz pur e alcohol) Child or Family Care Answer Date Record ed Do you have problems with on e of the following making it difficult for you to work, study, or receive health care? No 12/09/2022 Education Answer Date Recorded Are you interested in help w ith more adult education (for example, completing high school, GED, job training, learning the Azeri language, technical skills, or developing parenting skills)? Yes 12/09/2022 Food Answer Date Recorded Within the past 6 months we worried whether our food would run out before we got money to buy more. Never True 12/09/2022 Within the past 6 months the food we bought just didn't last and we didn't have enough money to get more. Never True Residential Stability Answer Date Recor ded What is your housing situation today? I have eda garland 12/09/2022 How many times have you move d in the past 12 months? Zero (I did not move) 12/09/2022 Paying for Meds Answer Date Recorded Do you have trouble paying for medicines? No 12/09/2022 Paying Utility Bills Answer Date Record ed Do you have trouble paying your heating or elect ricity bill? No 12/09/2022 Transportation Answer Date Recorded Has the lack of transportati on kept you from medical appointments or from getting medications? No 12/09/2022 Unemployment Answer Date Recorded Are you currently unemployed or working on a part-time or temporary basis, and looking for work? No 12/09/2022 Digital Access Answer Date Recorded No 02/08/2023 No 02/08/2023 Reliable internet access at home? Not on file 02/08/2023 Device with a working camera? Not on file Intimate Partner Violence Answer Date R ecorded Denied Basic Needs Not on file 12/09/2022 In the past 12 months have y ou been in a relationship with a person who hurts, threatens, or tries to control you? No 12/09/2022 Worried food would run out Not on file 12/09 In the past 12 months have y ou been in a relationship with a person who hurts, threatens, or tries to control you? 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 Not on fi le documented as of this encounter Plan of Treatment Upcoming Encounters Date Type Department Care Team (Late st Contact Info) Description 10/04/2025 3:00 PM EST Office Visit [facility] Medicine [address] [place] [address] Richard Smith, DO [address] [place] [address] documented as of this encounter Visit Diagnoses Not on filedocumented in this encounter Additional Health Concerns Assessment Noted Time PHQ-2 Depression Total Score: 0 12/10/19 23 7:25 AM EDT documented as of this encounter Care Teams Chief Service Dispatcher Relationship Specialty Start Date End Date Richard Smith DO 29 [place] [address] PCP - General 07/01/17 Richard Smith DO 29 [place] [address] Historical LMR Provider 07/03/17 Richard Smith DO 29 [place] [address] Insurance Assigned Provider 12/18/23 documented as of this encounter Additional Source Comments The information contained in this document represents components of the legal health record. It is not the complete legal health record.[facility]
--- OUTSIDE RECORDS SUMMARY | 2025-05-21 18:18 | XMS_ITS | Encounter Summary ---
Author Organization [facility] Address [address] [place] [address] Care Team Providers Care Mandarin Speaking Nanny Name Role Phone Richard Smith DO Primary Care Provider [phone] Encounter Details Date Type Department Care Team (Late st Contact Info) Description 01/26/2025 Lab Requisition [facility] - Main Lab [address] [facility] [address] Ade Dominguez PA [address] [place], [place] [id number] Urinary tract infection, site not specified; Dysuria Social History Tobacco Use Types Packs/Day Years Used Date Smoking Tobacco: Never Assessed Sex and Gender Information Value Date Recorded Sex Assigned at Not on file Legal Sex Male 6:09 PM EDT Gender Identity Not on file Sexual Orientation Not on file documented as of this encounter Plan of Treatment Not on file documented as of this encounter Procedures Procedure Name Priority Date/Time Associated Diagnosis Comments CULTURE URINE Routine 01/26/2025 2:45 PM EDT Urinary tract infection, site not specified Dysuria documented in this encounter Results * Culture urine (01/26/2025 2:45 PM EDT) Culture, Urine <10,000 cfu/ml, insignificant count, no further workup. 01/27/2025 1:25 PM EDT [facility] Urine Urine specimen obtained by clean catch procedure / Unknown 01/26/2025 2:45 PM EDT 01/26/2025 6:18 PM EDT Ade [facility] MICROBIOLOGY - GENERAL ORD ERABLES Final Result [facility] [address] [place] [address], documented in this encounter Visit Diagnoses Diagnosis Urinary tract infection, site not specified Dysuria documented in this encounter Care Teams Mandarin Speaking Nanny Relationship Specialty Start Date End Date Richard Smith DO [address] [place] [address] PCP - General Family Medicine 01/26/25 documented as of this encounter
--- OUTSIDE RECORDS SUMMARY | 2025-05-21 18:18 | XMS_ITS | Encounter Summary ---
Author Organization [facility] Address [address] [place] [address] Phone Care Team Providers Care Manager Mass Name Role Phone Richard Smith DO Primary Care Provider [phone] Richard Smith DO Unavailable Richard Smith DO Unavailable Encounter Details Date Type Department Care Team (Late st Contact Info) Description 12/01/2024 Transcribe Orders [facility] Specimen Processing 30 [place] [address] Richard Smith DO 29 [place] [address] [email or web address] Social History Tobacco Use Types Packs/Day Years [...] high school, GED, job training, learning the Northern Irish language, technical skills, or developing parenting skills)? [...] ecorded Denied Basic Needs Not on file 09/28/2024 In the past 12 months have y ou been in a relationship with a person who hurts, threatens, or tries to control you? No 09/28/2024 Worried food would run out Not on file 09/28 In the past 12 months have y ou been in a relationship with a person who hurts, threatens, or tries to control you? 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 Not on file Not on fi le documented as of this encounter Plan of Treatment Upcoming Encounters Date Type Department Care Team (Late st Contact Info) Description 10/04/2025 3:00 PM EST [facility] [address] [place] [address] Richard Smith DO 29 [place] [address] [email or web address] documented as of this encounter Visit Diagnoses Not on filedocumented in this encounter Additional Health Concerns Assessment Noted Time PHQ-2 Depression Total Score: 0 09/28/19 25 7:27 AM EST documented as of this encounter Care Teams Manager Mass Relationship Specialty Start Date End Date Richard Smith DO 29 [place] [address] [email or web address] PCP - General 07/01/17 Richard Smith DO 29 [place] [address] maria del Historical LMR Provider 07/03/17 Richard Smith DO 29 [place] [address] Insurance Assigned Provider 12/18/23 documented as of this encounter Additional Source Comments The information contained in this document represents components of the legal health record. It is not the complete legal health record.[facility]
--- OUTSIDE RECORDS SUMMARY | 2025-05-21 18:18 | XMS_ITS | Clinical Summary ---
Author Organization [address] Address [address] [place] [address] Phone Care Team Providers Care Head Men'S Golf Coach Name Role Phone [email or web address] [email or web address] Primary Care Provider [phone] Social History Tobacco Use Types Packs/Day Years [...] 2012 Zoster Vaccines (1 of 2) 2012 Depression Screening 09/13/2024 Cholesterol Screening (Lipid Panel) 01/27/2025 Colorectal Cancer Screening: Colonoscopy 01/27/2025 HIV Screening 01/27/2025 Hepatitis C Screening 01/27/2025 Social Influencers of Health Screening 01/27/2025 COVID-19 Vaccine (1 - 2023-2 5 season) 2025 Influenza Vaccine (#1) 2025 RSV Immunization Adult Patie nts (1 [...] on patient's age to complete this topic Insurance [facility] Care Teams Head Men'S Golf Coach Relationship Specialty Start Date End Date Richard Smith DO [address] [place] [address] PCP - General Family Medicine 01/26/25
--- OUTSIDE RECORDS SUMMARY | 2025-05-21 18:18 | XMS_ITS | Encounter Summary ---
Author Organization [facility] Address [address] [place] [address] Phone Care Team Providers Care Preschool Principal Name Role Phone Richard Smith DO Primary Care Provider [phone] Richard Smith DO Unavailable Matthias Chicas MD Unavailable [phone] Richard Smith DO Unavailable Richard Smith DO Unavailable Encounter Details Date Type Department Care Team (Late st Contact Info) Description 10/07/2020 Transcribe Orders [facility] 29 [place], [place] [phone] Richard Smith DO 29 [facility] [place] [address] Social History Tobacco Use Types Packs/Day Years [...] 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 file Not on fi le documented as of this encounter Plan of Treatment Upcoming Encounters Date Type Department Care Team (Late st Contact Info) Description 10/04/2025 3:00 PM EST Office Visit [facility] [address] [place] [address] Richard Smith DO 29 [place] [address] documented as of this encounter Visit Diagnoses Not on filedocumented in this encounter Additional Health Concerns Infection Onset Date Last Indicated Resolved Time CoV-Risk 10/28/2020 10/29/2020 11/07/2020 1:24 AM EST Assessment Noted Time PHQ-2 Depression Total Score: 0 10/01/19 8:31 PM EST documented as of this encounter Care Teams Preschool Principal Relationship Specialty Start Date End Date Richard Smith DO [address] [place] [address] PCP - General 07/01/17 Richard Smith DO [address] [place] [address] Historical LMR Provider 07/03/17 Matthias Chicas MD [address] [place], [place] [phone] Historical LMR Provider 07/03/17 2 Richard Smith DO [address] [place] [address] Insurance Assigned Provider 02/16/2105/24 Richard Smith DO [address] [place] [address] [email or web address] Insurance Assigned Provider 12/18/23 documented as of this encounter Additional Source Comments The information contained in this document represents components of the legal health record. It is not the complete legal health record.[facility]
--- OUTSIDE RECORDS SUMMARY | 2025-05-21 18:18 | XMS_ITS | Encounter Summary ---
Author Organization [facility] Address [address] [place] [address] Phone Care Team Providers Care Gold Layer Name Role Phone Richard Smith DO Primary Care Provider [phone] Richard Smith DO Unavailable Matthias Chicas MD Unavailable [phone] Richard Smith DO Unavailable Encounter Details Date Type Department Care Team (Late st Contact Info) Description 08/13/2021 Prep for Surgery [facility] Orthopedics & Sports Medicine [address] [place] [address] Deloris Velarde MD [address] [place] [address] Orthopedics & Sports Medicine, [facility] 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 29 [place] [address] Richard Smith DO 29 [place] [address] documented as of this encounter Visit Diagnoses Not on filedocumented in this encounter Additional Health Concerns Assessment Noted Time PHQ-2 Depression Total Score: 0 10/01/19 21 8:31 PM EST documented as of this encounter Care Teams Gold Layer Relationship Specialty Start Date End Date Richard Smith DO 29 [place] [address] maria del PCP - General 07/01/17 Richard Smith DO [address] [place] [address] maria del Historical LMR Provider 07/03/17 Matthias Chicas MD [address] [place] [phone] Historical LMR Provider 07/03/17 2 Richard Smith DO [address] [place] [address] maria del Insurance Assigned Provider 12/18/23 documented as of this encounter Additional Source Comments The information contained in this document represents components of the legal health record. It is not the complete legal health record.[facility]
--- OUTSIDE RECORDS SUMMARY | 2025-05-21 18:18 | XMS_ITS | Encounter Summary ---
Author Organization [facility] Address [address] [place] [address] Phone Care Team Providers Care Customer Counter Representative Name Role Phone Richard Smith DO Primary Care Provider [phone] Richard Smith DO Unavailable Richard Smith DO Unavailable Encounter Details Date Type Department Care Team (Late Contact Info) Description 10/15/2021 Procedure Pass [place] Admitting Dept - Virtual Department [address] [place] [address] Social History Tobacco Use Types Packs/Day Years Used Date Smoking Tobacco: Never Smokeless Tobacco: Never Alcohol Use Standard Drinks/Week Comments Yes 3 (1 standard drink = 0.6 oz pur e alcohol) Sex and Gender Information Value Date Recorded Sex Assigned at Not on file Legal Sex Male 9:45 PM EDT Gender Identity Not on file Sexual Orientation Not on file 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 Not on file Not on le documented as of this encounter Plan of Treatment Upcoming Encounters Date Type Department Care Team (Late Contact Info) Description 10/04/2025 3:00 PM EST Office Visit Case [address] [address] Richard Smith DO [address] [place] [address] documented as of this encounter Visit Diagnoses Not on filedocumented in this encounter Additional Health Concerns Assessment Noted Time PHQ-2 Depression Total Score: 0 10/01/19 21 8:31 PM EST documented as of this encounter Care Teams Customer Counter Representative Relationship Specialty Start Date End Date Richard Smith DO 29 [place] [address] [email or web address] PCP - General 07/01/17 Richard Smith DO 29 [place] [address] [email or web address] Historical LMR Provider 07/03/17 Richard Smith DO 29 [place] [address] [email or web address] Insurance Assigned Provider 12/18/23 documented as of this encounter Additional Source Comments The information contained in this document represents components of the legal health record. It is not the complete legal health record.[facility]
== END 2025-05-21 15:28 | disposition home or self-care (01) ==
LOC: HO.HSM 15:05
PROVIDERS: PCP Family Medicine; Referring Provider Family Medicine; Visit Provider Psychiatry & Neurology Neurology
DX: G30.0 Alzheimer's disease with early onset (principal); F02.A0 Dementia in other diseases classified elsewhere, mild, without behavioral disturbance, psychotic disturbance, mood disturbance, and anxiety
CPT/HCPCS: 99214

== ENCOUNTER → 2025-05-21 15:05 | Outpatient (BNVA) | payer BC, SELFPAY | PROVIDERS: PCP Family Medicine; Referring Provider Family Medicine; Visit Provider Psychiatry & Neurology Neurology | DX: G30.0 Alzheimer's disease with early onset (principal); F02.A0 Dementia in other diseases classified elsewhere, mild, without behavioral disturbance, psychotic disturbance, mood disturbance, and anxiety; Z13.89 Encounter for screening for other disorder ==